=== PATIENT | female | born 1960 | race Caucasian/White ===

== ENCOUNTER 2016-12-13 13:57 | Inpatient (IN) | payer MEDICARE ==
[2016-12-12 18:40] VITALS: BP 145/95
[~2016-12-13] VITALS: Ht 152.4 cm; Wt 40.0 kg
[~2016-12-13 13:57] MED LIST: ULTRAM50 MG OR
[2016-12-13] MEDS ORDERED: PROAIR HFA IN (14:32)
[2016-12-13] MEDS ORDERED: ADVAIR DISK1 IN (14:33)
[2016-12-13] MEDS ORDERED: ALBUTEROL SUL0.083 % IN (14:33)
[2016-12-13 14:40] LABS: HEMATOCRIT 47.7 % (37.0-47.0); HEMOGLOBIN 16.5 g/dl (12.0-16.0); IMMATURE GRANULOCYTES 0.5 % (0.0-1.0); MEAN CELL VOLUME 97.9 fL CALC (80.0-100.0); MEAN CORPUSCULAR HGB 33.9 pG CALC (26.0-32.0); MEAN CORPUSCULAR HGB CONC 34.6 g/L CALC (32.0-36.0); NEUT# 7.22 thou/uL (2.00-7.15); RED BLOOD COUNT 4.87 mill/uL (4.20-5.60); RED CELL DISTRI WIDTH 13.2 % (11.5-15.5)
[2016-12-13 14:51] LABS: ALBUMIN 4.8 g/dL (3.2-5.0); ALKALINE PHOSPHATASE 82 u/l (38-126); ANION GAP 20 (6-22 (CALC)); BILIRUBIN, TOTAL 1.3 mg/dL (0.0-1.4); BUN 4 mg/dL (7-17); BUN/CREATININE RATIO 14 (12-20 (CALC)); CALCIUM 9.7 mg/dL (8.4-10.2); CARBON DIOXIDE 28 mmol/l (22-30); CHLORIDE 81 mmol/l (95-108); CREATININE 0.3 mg/dL (0.5-1.0); GFR > 60 ML/MIN (>=60 (CALC)); GFR FOR AFR.AMER. > 60 ML/MIN (>=60 (CALC)); GLUCOSE 112 mg/dL (65-105); POTASSIUM 4.9 mmol/l (3.5-5.1); SGOT/AST 49 u/l (14-36); SGPT/ALT 42 u/l (9-52); SODIUM 124 mmol/l (137-146); TOTAL PROTEIN 7.6 g/dL (6.3-8.2)
[2016-12-13 15:04] LABS: MYOGLOBIN 22 ng/mL (0 - 62)
[2016-12-13 18:00] VITALS: BP 138/87
[2016-12-13 23:40] VITALS: BP 102/66
[2016-12-14 04:20] VITALS: BP 118/80
[2016-12-14 05:47] LABS: HEMATOCRIT 47.6 % (37.0-47.0); HEMOGLOBIN 16.6 g/dl (12.0-16.0); IMMATURE GRANULOCYTES 0.5 % (0.0-1.0); MEAN CELL VOLUME 97.5 fL CALC (80.0-100.0); MEAN CORPUSCULAR HGB CONC 34.9 g/L CALC (32.0-36.0); NEUT# 6.22 thou/uL (2.00-7.15); RED BLOOD COUNT 4.88 mill/uL (4.20-5.60); RED CELL DISTRI WIDTH 13.2 % (11.5-15.5)
[2016-12-14 06:06] LABS: MAGNESIUM 3.3 mg/dL (1.6-2.3)
[2016-12-14 06:07] LABS: ANION GAP 16 (6-22 (CALC)); BUN 5 mg/dL (7-17); BUN/CREATININE RATIO 14 (12-20 (CALC)); CALCIUM 9.3 mg/dL (8.4-10.2); CARBON DIOXIDE 32 mmol/l (22-30); CHLORIDE 85 mmol/l (95-108); CREATININE 0.4 mg/dL (0.5-1.0); GFR > 60 ML/MIN (>=60 (CALC)); GFR FOR AFR.AMER. > 60 ML/MIN (>=60 (CALC)); GLUCOSE 205 mg/dL (65-105); POTASSIUM 4.5 mmol/l (3.5-5.1); SODIUM 128 mmol/l (137-146)
[2016-12-14 06:13] LABS: CHOLESTEROL HDL RATIO 1.5 (<4.4 (CALC))
[2016-12-14 08:15] VITALS: BP 106/68
[2016-12-14 14:31] VITALS: BP 115/75
[2016-12-14 15:39] VITALS: BP 120/77
[2016-12-14 19:05] VITALS: BP 103/68
[2016-12-14 23:28] VITALS: BP 96/66
[2016-12-15] VITALS (8 sets, daily range): BP systolic 96–148; BP diastolic 62–90
[2016-12-15 07:13] LABS: ANION GAP 15 (6-22 (CALC)); BUN 5 mg/dL (7-17); BUN/CREATININE RATIO 15 (12-20 (CALC)); CALCIUM 9.6 mg/dL (8.4-10.2); CARBON DIOXIDE 31 mmol/l (22-30); CHLORIDE 90 mmol/l (95-108); CREATININE 0.4 mg/dL (0.5-1.0); GFR > 60 ML/MIN (>=60 (CALC)); GFR FOR AFR.AMER. > 60 ML/MIN (>=60 (CALC)); GLUCOSE 167 mg/dL (65-105); POTASSIUM 5.1 mmol/l (3.5-5.1); SODIUM 131 mmol/l (137-146)
[2016-12-16 03:52] VITALS: BP 144/86
[2016-12-16 05:58] LABS: HEMATOCRIT 43.3 % (37.0-47.0); HEMOGLOBIN 14.7 g/dl (12.0-16.0); IMMATURE GRANULOCYTES 1.2 % (0.0-1.0); MEAN CELL VOLUME 99.8 fL CALC (80.0-100.0); MEAN CORPUSCULAR HGB 33.9 pG CALC (26.0-32.0); MEAN CORPUSCULAR HGB CONC 33.9 g/L CALC (32.0-36.0); NEUT# 11.01 thou/uL (2.00-7.15); RED BLOOD COUNT 4.34 mill/uL (4.20-5.60); RED CELL DISTRI WIDTH 13.7 % (11.5-15.5)
[2016-12-16 06:02] LABS: ANION GAP 18 (6-22 (CALC)); BUN 6 mg/dL (7-17); BUN/CREATININE RATIO 20 (12-20 (CALC)); CALCIUM 9.4 mg/dL (8.4-10.2); CARBON DIOXIDE 28 mmol/l (22-30); CHLORIDE 91 mmol/l (95-108); CREATININE 0.3 mg/dL (0.5-1.0); GFR > 60 ML/MIN (>=60 (CALC)); GFR FOR AFR.AMER. > 60 ML/MIN (>=60 (CALC)); GLUCOSE 170 mg/dL (65-105); MAGNESIUM 1.6 mg/dL (1.6-2.3); POTASSIUM 5.5 mmol/l (3.5-5.1); SODIUM 131 mmol/l (137-146)
[2016-12-16 09:01] VITALS: BP 136/80
[2016-12-16 11:07] VITALS: BP 129/82
[2016-12-16 15:29] VITALS: BP 133/73
[2016-12-16 19:00] VITALS: BP 99/67
[2016-12-17 00:19] VITALS: BP 107/75
[2016-12-17 03:44] VITALS: BP 112/71
[2016-12-17 08:05] VITALS: BP 125/65
[2016-12-17 09:57] LABS: ANION GAP 16 (6-22 (CALC)); BUN 8 mg/dL (7-17); BUN/CREATININE RATIO 24 (12-20 (CALC)); CALCIUM 9.4 mg/dL (8.4-10.2); CARBON DIOXIDE 30 mmol/l (22-30); CHLORIDE 91 mmol/l (95-108); CREATININE 0.3 mg/dL (0.5-1.0); GFR > 60 ML/MIN (>=60 (CALC)); GFR FOR AFR.AMER. > 60 ML/MIN (>=60 (CALC)); GLUCOSE 227 mg/dL (65-105); POTASSIUM 4.6 mmol/l (3.5-5.1); SODIUM 133 mmol/l (137-146)
[2016-12-17 12:00] VITALS: BP 109/76
[2016-12-17 14:50] VITALS: BP 119/68
[2016-12-17] MEDS ORDERED: CARDIZEM CD120 M1 PO (16:13)
[2016-12-17] MEDS ORDERED: [UNRECOGNIZED DRUG - OTHER] PO (16:13)
[2016-12-17] MEDS ORDERED: MEDDOSEPAK PO (16:14)
[2016-12-17] MEDS ORDERED: ZPAK PO (16:14)
[2016-12-17] MEDS ORDERED: OXY1 (16:15)
[2016-12-20 14:48] LABS: THYROID PEROXIDASE AB_i <1 IU/mL (<9)
== END 2016-12-17 16:56 | disposition home or self-care (01) | DRG 190 ==
LOC: ED 13:57 → ED-I 15:05 → ED 16:27 → MS2 16:28
PROVIDERS: Emergency Medicine; Internal Medicine; Nurse Practitioner Family; ADMIT Internal Medicine; ATTEND Internal Medicine
PROC: 3E0234Z Introduction of Serum, Toxoid and Vaccine into Muscle, Percutaneous Approach (ICD-10-PCS; principal; 2016-12-15)
DX: J44.1 Chronic obstructive pulmonary disease with (acute) exacerbation (principal); J96.22 Acute and chronic respiratory failure with hypercapnia; J96.21 Acute and chronic respiratory failure with hypoxia; E46 Unspecified protein-calorie malnutrition; Z68.1 Body mass index [BMI] 19.9 or less, adult; E87.1 Hypo-osmolality and hyponatremia; J44.0 Chronic obstructive pulmonary disease with (acute) lower respiratory infection; J20.9 Acute bronchitis, unspecified; F17.210 Nicotine dependence, cigarettes, uncomplicated; F10.10 Alcohol abuse, uncomplicated; E05.90 Thyrotoxicosis, unspecified without thyrotoxic crisis or storm; Z23 Encounter for immunization

== ENCOUNTER 2018-10-21 14:02 | Emergency (ER) | payer MEDICARE, MEDICAID ==
[~2018-10-21] VITALS: Ht 152.4 cm; Wt 34.1 kg
[~2018-10-21 14:02] MED LIST changes: +ADVAIR DISK1 IN; +ALBUTEROL SUL0.083 % IN; +CARDIZEM CD120 M1 PO; +MEDDOSEPAK PO; +OXY1; +PROAIR HFA IN; +ZPAK PO; +[UNRECOGNIZED DRUG - OTHER] PO
[2018-10-21] MEDS ORDERED: VENTOLIN H108 MCG/AC PO (14:54)
[2018-10-21] MEDS ORDERED: TOPROL XL25 MG PO (14:54)
[2018-10-21] MEDS ORDERED: FAMOTIDINE20 M1 PO (14:54)
[2018-10-21] MEDS ORDERED: ADVAIR HF1 IN (14:55)
[2018-10-21] MEDS ORDERED: TRAMADOL HYDROC50 MG PO (16:16)
[2018-10-21 16:25] VITALS: BP 102/59
== END 2018-10-21 16:25 | disposition home or self-care (01) ==
LOC: ED 14:02
DX: S93.402A Sprain of unspecified ligament of left ankle, initial encounter (principal); S93.602A Unspecified sprain of left foot, initial encounter; I10 Essential (primary) hypertension; J44.9 Chronic obstructive pulmonary disease, unspecified; F17.200 Nicotine dependence, unspecified, uncomplicated; W23.0XXA Caught, crushed, jammed, or pinched between moving objects, initial encounter

== ENCOUNTER 2019-01-01 12:30 | Emergency (ER) | payer MEDICARE, MEDICAID ==
[~2019-01-01] VITALS: Ht 152.4 cm; Wt 37.0 kg
[~2019-01-01 12:30] MED LIST changes: +ADVAIR HF1 IN; +FAMOTIDINE20 M1 PO; +TOPROL XL25 MG PO; +TRAMADOL HYDROC50 MG PO; +VENTOLIN H108 MCG/AC PO
[2019-01-01] MEDS ORDERED: TRAMADOL HYDROC50 MG PO (16:10)
[2019-01-01 17:13] VITALS: BP 122/82
== END 2019-01-01 17:13 | disposition home or self-care (01) ==
LOC: ED 12:30
DX: S80.11XA Contusion of right lower leg, initial encounter (principal); I10 Essential (primary) hypertension; J44.9 Chronic obstructive pulmonary disease, unspecified; W18.30XA Fall on same level, unspecified, initial encounter; Y92.009 Unspecified place in unspecified non-institutional (private) residence as the place of occurrence of the external cause